=== PATIENT | female | born 1950 | race Caucasian/White ===

== ENCOUNTER → 2016-09-08 | Outpatient (CLI) | payer MEDICARE, OTHER ==
--- NOTE | 2016-09-08 11:07 | FL ---
EXAMINATION TYPE: FL UGI DATE OF EXAM: 09/08/2016 10:56 AM COMPARISON: NONE HISTORY: Epigastric pain with blood in stool and negative colonoscopy 1 year ago TECHNIQUE: A double contrast UGI study is performed. A total of 48 seconds of fluoroscopic time was utilized during procedure. 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 Scattered pelvic phleboliths are pr esent. There is disc space narrowing with spurring and sclerosis right L4-L5 level. Patient has poor tolerance of air crystals initiating cough making evaluation slightly suboptimal The esophagus shows normal motility and emptying into the stomach. No evidence of hiatal hernia or stri cture noted. The stomach shows suboptimal distention with mild to moderate gastric wall or fold prominence. No ev idence of any mass or ulcer disease. One to 2 episodes of gastroesophageal reflux were seen during re al-time performance of study. The duodenal bulb, sweep, and proximal small bowel loops are unremarka ble. IMPRESSION: Fairly moderate diffuse gastritis suspected with mild gastroesophageal reflux noted.
== END | disposition home or self-care (01) ==
LOC: RADFLWHC 09:58
PROVIDERS: ATTEND Internal Medicine
DX: K21.9 Gastro-esophageal reflux disease without esophagitis (principal)
CPT/HCPCS: 74240

== ENCOUNTER 2017-01-05 10:02 | Emergency (ER) | payer MEDICARE, OTHER ==
[2017-01-05 10:19] VITALS: BP 159/104; PULSE 85; RESP 17; TEMP 98.6
--- NOTE | 2017-01-05 11:14 | XR ---
EXAMINATION TYPE: XR Hip Complete RT , 2 VIEWS DATE OF EXAM ORDERED: 01/05/2017 HISTORY: Pain, bruising. COMPARISON: None. FINDINGS: Right femoral head is nonspherical. There is a small "bump" on the femoral neck. There is mild overgrowth of the acetabulum on the right. Note is made of injection granuloma in the right buttock. IMPRESSION: PLEASE CORRELATE CLINICALLY FOR FEMOROACETABULAR IMPINGEMENT.
--- NOTE | 2017-01-05 11:22 | ED ---
Lower Extremity Injury HPI - General Chief Complaint: Extremity Injury, Lower Stated Complaint: Right Hip pain Time Seen by Provider: 01/05/17 10:56 Source: patient, RN notes reviewed, old records reviewed Mode of arrival: ambulatory Limitations: no limitations - History of Present Illness Initial Comments: This is a 66-year-old female presenting to the emergency Department chief complaint of right hip pain for the past week. Patient reports that she feels as if she strained a muscle. Patient reports that over the past day and half she's noticed a bruise over the right hip. Patient reports that she did not fall or have any concern for injury. Patient is concerned why she has a bruise this time. Patient denies any difficulty walking. She reports the pain is mainly when she internally rotates her head. She does see an orthopedic physician for chronic arthritis and hip pain. - Related Data Home Medications Medication Instructions Recorded Confirmed Atenolol [Atenolol] 25 mg PO DAILY 12/25/15 01/05/17 traMADol HCL [Ultram] 50 mg PO TID 12/25/15 01/05/17 Citalopram Hydrobromide [CeleXA] 20 mg PO DAILY 03/31/16 01/05/17 Omeprazole [PriLOSEC] 20 mg PO DAILY 01/05/17 01/05/17 Previous Rx's Medication Instructions Recorded Acetaminophen-Codeine 300-30mg 1 tab PO Q4H PRN #12 tablet 01/05/17 [Tylenol #3] Allergies Allergy/AdvReac Type Severity Reaction Status Date / Time bacitracin AdvReac Rash/Hives Verified 01/05/17 10:29 [From Neosporin ([id number])] bacitracin zinc AdvReac Rash/Hives Verified 01/05/17 10:29 [From Neosporin ([id number])] neomycin sulfate AdvReac Rash/Hives Verified 01/05/17 10:29 [From Neosporin ([id number])] polymyxin B AdvReac Rash/Hives Verified 01/05/17 10:29 [From Neosporin ([id number])] Review of Systems ROS Statement: Those systems with pertinent positive or pertinent negative responses have been documented in the HPI. ROS Other: All systems not noted in ROS Statement are negative. Past Medical History Past Medical History: Hypertension History of Any Multi-Drug Resistant Organisms: None Reported Past Surgical History: Hysterectomy, Orthopedic Surgery Additional Past Surgical History / Comment(s): knee, shoulder Past Psychological History: Bipolar Smoking Status: Current every day smoker Past Alcohol Use History: Rare Past Drug Use History: None Reported General Exam - General Exam Comments Initial Comments: 66-year-old female. No distress. Limitations: no limitations General appearance: alert, in no apparent distress Head exam: Present: atraumatic, normocephalic, normal inspection Eye exam: Present: normal appearance, PERRL, EOMI. Absent: scleral icterus, conjunctival injection, periorbital swelling ENT exam: Present: normal exam, mucous membranes moist Neck exam: Present: normal inspection. Absent: tenderness, meningismus, lymphadenopathy Respiratory exam: Present: normal lung sounds bilaterally. Absent: respiratory distress, wheezes, rales, rhonchi, stridor Cardiovascular Exam: Present: regular rate, normal rhythm, normal heart sounds. Absent: systolic murmur, diastolic murmur, rubs, gallop, clicks GI/Abdominal exam: Present: soft, normal bowel sounds. Absent: distended, tenderness, guarding, rebound, rigid Extremities exam: Present: normal inspection, full ROM, normal capillary refill , other (Contusion over lateral right hip. No evidence of decreased range of motion or knee pain or distant neurological or vascular deficits.). Absent: tenderness, pedal edema, joint swelling, calf tenderness Back exam: Present: normal inspection Neurological exam: Present: alert, oriented X3, CN II-XII intact Psychiatric exam: Present: normal affect, normal mood Course Vital Signs 01/05/17 10:15 Temperature 98.6 F Pulse Rate 85 Respiratory 17 Rate Blood Pressure 159/104 O2 Sat by Pulse 95 Oximetry Medical Decision Making - Medical Decision Making This is a 66-year-old female presenting to the emergency Department chief complaint of right hip pain for the past week. Patient reports that she feels as if she strained a muscle. Patient reports that over the past day and half she's noticed a bruise over the right hip. Patient reports that she did not fall or have any concern for injury. Patient is concerned why she has a bruise this time. Patient denies any difficulty walking. Patient does have a significant bruise over the lateral aspect of the hip. Discussed that this could be related to the muscle strain tearing a blood vessel. Patient has good distal pulses and is neurovascularly intact. X-ray of the hip was reviewed and indicated to correlate for femoral acetabular syndrome. He does have some mild pain with internal rotation. Discussed that she is apply ice over the hip and take anti-inflammatory medication. Discussed following up with orthopedic physician. Patient agrees to treatment plan will comply. Return parameters were discussed. - Radiology Data Radiology results: report reviewed Hip x-rays reviewed and negative for any acute process. Indicated to correlate for femoral acetabular syndrome. Disposition Clinical Impression: Contusion, hip, Hip strain Disposition: HOME SELF-CARE Condition: Good Instructions: Hip Sprain (ED), Hip Contusion (ED) Additional Instructions: Patient denies a take Motrin or Tylenol for pain. Apply ice over the area. Also recommend following up with orthopedic physician. Return to the emergency department if any alarming signs or symptoms occur. Prescriptions: Acetaminophen-Codeine 300-30mg [Tylenol #3] 1 tab PO Q4H PRN #12 tablet PRN Reason: Pain Referrals: Angel Stahl MD [Primary Care Provider] - 1-2 days Jose Ugalde DO [Doctor of Osteopathic Medicine] - 1-2 days Time of Disposition: 11:22
== END 2017-01-05 11:40 | disposition home or self-care (01) ==
LOC: EC 10:02
DX: S76.011A Strain of muscle, fascia and tendon of right hip, initial encounter (principal); I10 Essential (primary) hypertension; F31.9 Bipolar disorder, unspecified; F17.200 Nicotine dependence, unspecified, uncomplicated; Z88.2 Allergy status to sulfonamides; Z88.1 Allergy status to other antibiotic agents; Z79.891 Long term (current) use of opiate analgesic; Z79.899 Other long term (current) drug therapy; W18.49XA Other slipping, tripping and stumbling without falling, initial encounter
CPT/HCPCS: 73502; 99283

== ENCOUNTER → 2017-09-19 | Outpatient (CLI) | payer MEDICARE, OTHER ==
[2017-09-19 09:39] LABS: HCT 46.3 % (34.0-46.0); HGB 14.9 gm/dL (11.4-16.0); MCH 31.3 pg (25.0-35.0); MCHC 32.3 g/dL (31.0-37.0); MCV 96.9 fL (80.0-100.0); Mean Platelet Volume 7.4; Platelet Count 245 k/uL (150-450); RBC 4.78 m/uL (3.80-5.40); RDW 13.4 % (11.5-15.5); WBC 6.9 k/uL (3.8-10.6)
[2017-09-19 09:52] LABS: ALT 21 U/L (9-52); AST 18 U/L (14-36); Albumin 4.2 g/dL (3.5-5.0); Alkaline Phosphatase 75 U/L (38-126); Anion Gap 11 mmol/L; Blood Urea Nitrogen 12 mg/dL (7-17); Carbon Dioxide 27 mmol/L (22-30); Chloride 101 mmol/L (98-107); Cholesterol 163 mg/dL (<200); Glucose 100 mg/dL (74-99); HDL Cholesterol 60 mg/dL (40-60); LDL Cholesterol,Calculated 80 mg/dL (0-99); Sodium 139 mmol/L (137-145); Total Bilirubin 0.7 mg/dL (0.2-1.3); Total Protein 6.5 g/dL (6.3-8.2); Triglycerides 117 mg/dL (<150)
[2017-09-19 10:08] LABS: T4, Free (Free Thyroxine) 1.16 ng/dL (0.78-2.19)
--- NOTE | 2017-09-19 10:18 | XR ---
EXAMINATION TYPE: XR chest 2V DATE OF EXAM: 09/19/2017 COMPARISON: 06/08/2012 HISTORY: Physical examination TECHNIQUE: Frontal and lateral views of the chest are obtained. FINDINGS: There is no focal air space opacity, pleural effusion, or pneumothorax seen. The cardiac silhouette size is within normal limits. The osseous structures are intact. Surgical anchors seen w ithin the left humeral head from prior rotator cuff repair. Minimal multilevel degenerative changes o f the thoracic spine are noted. IMPRESSION: No acute cardiopulmonary process.
== END | disposition home or self-care (01) ==
LOC: LABWHC1 08:56
PROVIDERS: ATTEND Internal Medicine
DX: Z00.00 Encounter for general adult medical examination without abnormal findings (principal); J44.9 Chronic obstructive pulmonary disease, unspecified; I10 Essential (primary) hypertension; K21.9 Gastro-esophageal reflux disease without esophagitis
CPT/HCPCS: 36415; 71046; 80053; 80061; 82272; 84439; 84443; 85027

== ENCOUNTER → 2018-10-24 | Outpatient (CLI) | payer MEDICARE, OTHER ==
[2018-10-24 11:42] LABS: HCT 39.5 % (34.0-46.0); HGB 13.3 gm/dL (11.4-16.0); MCH 31.2 pg (25.0-35.0); MCHC 33.6 g/dL (31.0-37.0); Mean Platelet Volume 6.8; Platelet Count 295 k/uL (150-450); RBC 4.25 m/uL (3.80-5.40); RDW 12.7 % (11.5-15.5); WBC 4.1 k/uL (3.8-10.6)
--- NOTE | 2018-10-24 13:31 | XR ---
EXAMINATION TYPE: XR chest 2V DATE OF EXAM: 10/24/2018 COMPARISON: NONE HISTORY: Annual physical. Wellness check. TECHNIQUE: Frontal and lateral views of the chest are obtained. FINDINGS: There is no focal air space opacity, pleural effusion, or pneumothorax seen. The cardiac silhouette size is within normal limits. The osseous structures are intact. Surgical anchor is seen within the left humeral head. Mild multilevel degenerative changes of the thoracic spine are noted. IMPRESSION: No acute cardiopulmonary process.
[2018-10-24 17:01] LABS: LDL Cholesterol,Calculated 119.8 mg/dL (0.0-131.0); VLDL Calculation 10.2 mg/dL (5.00-40.00)
[2018-10-24 17:02] LABS: Albumin 4.3 g/dL (3.80-4.90); Albumin/Globulin Ratio 2.87 (1.60-3.17); Anion Gap 7.2 mmol/L (4.00-12.00); Calcium 9.5 mg/dL (8.7-10.3); Carbon Dioxide 23.8 mmol/L (21.6-31.8); Globulin 1.5 g/dL (1.6-3.3); Potassium 4.3 mmol/L (3.5-5.5); Total Bilirubin 0.4 mg/dL (0.3-1.2); Total Protein 5.8 g/dL (6.2-8.2)
== END | disposition home or self-care (01) ==
LOC: LABWHC1 10:28
PROVIDERS: ATTEND Internal Medicine
DX: Z00.00 Encounter for general adult medical examination without abnormal findings (principal); I11.9 Hypertensive heart disease without heart failure; J44.9 Chronic obstructive pulmonary disease, unspecified; K21.0 Gastro-esophageal reflux disease with esophagitis; E78.2 Mixed hyperlipidemia
CPT/HCPCS: 36415; 71046; 80053; 80061; 84439; 84443; 85027

== ENCOUNTER → 2018-10-30 | Outpatient (CLI) | payer MEDICARE ==
[2018-10-30 13:37] VITALS: BP 138/91; PULSE 69; RESP 18; TEMP 96.2; BMI 23.9
--- NOTE | 2018-10-30 14:22 | P.HPOB ---
History of Present Illness H&P Date: 10/30/18 Chief Complaint: The patient is here for her routine gynecologic exam. This is a 68-year-old with an LMP of 1976. The patient is status post [facility] for carcinoma in situ of the cervix in 1976. She is without gynecologic complaints. She denies any vaginal bleeding. Review of Systems She is getting about 13 pounds over the last 4 years. Respiratory: occasional allergy symptoms. G.I.: occasional constipation and occasional loose stools. She denies any cardiac problems. Past Medical History Past Medical History: CVA/TIA, Hypertension Additional Past Medical History / Comment(s): TIA in 2012. Chronic back problems with herniated disk. History of osteopenia. 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 History of hysterectomy for CIS of the cervix in 1976. History of Any Multi-Drug Resistant Organisms: None Reported Past Surgical History: Hysterectomy, Orthopedic Surgery Additional Past Surgical History / Comment(s): knee, rotator cuff surgery/shoulder. JOIE 1976. Colonoscopy 2001 and 2014. Past Psychological History: Bipolar Smoking Status: Current every day smoker (12-18 cigarettes per day) Past Alcohol Use History: Rare Additional Past Alcohol Use History / Comment(s): History of alcohol abuse. She states she went through rehab in 2018 and states she quit after that. Past Drug Use History: Cocaine, Marijuana Additional Drug Use History / Comment(s): Quit using cocaine years ago. She admits to using marijuana. History of opioid abuse but quit after rehab in 2018. Additional History: She is and is not seen anybody at this time. She is retired. - Past Family History Mother Family Medical History: Unable to Obtain Additional Family Medical History / Comment(s): She is adopted and does not know her family history. Medications and Allergies Home Medications Medication Instructions Recorded Confirmed Type Atenolol 25 mg PO DAILY 12/25/15 10/30/18 History Gabapentin [Neurontin] 300 mg PO BID 10/30/18 10/30/18 History Vortioxetine Hydrobromide 5 mg PO DAILY 10/30/18 10/30/18 History [Trintellix] hydrOXYzine PAMOATE [Vistaril] 25 mg PO BID 10/30/18 10/30/18 History Allergies Allergy/AdvReac Type Severity Reaction Status Date / Time bacitracin AdvReac Rash/Hives Verified 10/30/18 13:29 [From Neosporin ([id number])] bacitracin zinc AdvReac Rash/Hives Verified 10/30/18 13:29 [From Neosporin ([id number])] neomycin sulfate AdvReac Rash/Hives Verified 10/30/18 13:29 [From Neosporin ([id number])] polymyxin B AdvReac Rash/Hives Verified 10/30/18 13:29 [From Neosporin ([id number])] Exam Vital Signs Temp Pulse Resp BP Pulse Ox 10/30/18 13:32 96.2 F L 69 18 138/91 97 Intake and Output 10/29/18 10/30/18 10/30/18 22:59 06:59 14:59 Other: Weight 61.235 kg Height 5'3", weight 135 pounds, BMI 23.9. This is a well-developed well-nourished white female who is alert and oriented times 3 in no acute distress. HEENT: Within normal limits. NECK: Supple without mass or thyromegaly. CHEST AND LUNGS: Clear to auscultation. HEART: Regular rate and rhythm. BREASTS: Are without mass or discharge. AXILLARY EXAM: Negative for adenopathy. BACK: Negative for CVA tenderness. ABDOMEN: Soft, nontender, without palpable masses. PELVIC EXAM: External genitalia appears normal with mild to moderate atrophy. Vagina appears normal with mild to moderate atrophy. There is no evidence of prolapse. Bimanual examination is negative for mass or tenderness. RECTAL EXAM: Rectovaginal exam is negative for mass or tenderness and is negative for occult blood. EXTREMITIES: Nontender. IMPRESSION: 1. 68-year-old menopausal female status post JOIE for CIS of the cervix. Normal gynecologic exam. 2. History of osteopenia. PLAN: 1. Pap smear of the vaginal cuff was obtained because of her history of CIS of the cervix. If this is negative, we will plan on discontinuing Pap smear testing. 2. Self breast awareness was discussed with the patient. 3. Screening mammogram was done last month at [facility] and was benign per the patient. She will repeat this in one year. 4. Osteoporosis prevention was discussed. I have stressed the importance of adequate calcium, vitamin D and regular exercise. Recommended amounts of calcium and vitamin D were also discussed. I have recommended bone density testing. The order slip will be sent to the patient. 5. She was advised to return in one year for her annual well woman exam.
--- NOTE | 2018-11-09 15:22 | P.PN ---
Progress Note - Text Progress Note Date: 11/09/18 OUTPATIENT FOLLOW-UP NOTE TEST(S)/RESULTS: Pap smear from 10/30/2018 was negative. There was a shift in the bacteria jaime suggestive of bacterial vaginosis. METHOD OF NOTIFICATION: the patient was notified by phone. PATIENT COMMENTS: the patient denies any symptoms of vaginal odor or discharge. She had recently been on antibiotics. DIAGNOSIS: negative Pap smear. No symptoms of BV. DISCUSSION: the patient was instructed to call she develops any symptoms such as vaginal odor or discharge. We discussed how her treatment for CIS of the cervix was greater than 20 years ago. With this negative Pap smear, we will plan and discontinuing Pap smears and she was notified of this. PLAN: She was advised to return in one year for her annual well woman exam. Discontinue Pap smear testing.
== END | disposition home or self-care (01) ==
LOC: WWCWWP 13:10
PROVIDERS: ATTEND Obstetrics & Gynecology
DX: Z53.9 Procedure and treatment not carried out, unspecified reason (principal)

== ENCOUNTER 2019-04-28 20:57 | Emergency (ER) | payer MEDICARE, OTHER ==
[2019-04-28] MEDS ORDERED: SODIUM CHLORIDE 0.9% 1,000 ML IV STA (21:01)
[2019-04-28] MEDS ORDERED: Alteplase PER PHARMACY Stroke 1 EACH MISC MISCELLANE PRN (21:01)
[2019-04-28 21:02] LABS: Glucose,Whole Blood 117 mg/dL (75-99)
--- NOTE | 2019-04-28 21:04 | ED ---
Neuro HPI - General Stated Complaint: Neuro Deficits Time Seen by Provider: 04/28/19 21:01 - History of Present Illness Is the patient presenting with stroke symptoms?: Yes -: hour(s) (0.5) Initial Comments: This is a 61-year-old female history of TIA high blood pressure high cholesterol coming in with stroke like symptoms. EMS. No blood thinners symptoms have 4 prior to arrival. Patient unable to move right arm unable to move right leg with right-sided slurred speech. Patient does state that the called EMS is that she is having a stroke. EMS noted mildly elevated blood pressure, patient denyi ng headache. Location: speech, right face, right arm, right leg History of same: No Place: home Severity: severe Quality: weak Improves With: none Worsens With: time On Anticoagulants: No Context: sudden onset Associated Symptoms: denies other symptoms Treatments Prior to Arrival: none - Related Data Home Medications: Home Medications Medication Instructions Recorded Confirmed Atenolol 25 mg PO DAILY 12/25/15 04/28/19 Gabapentin [Neurontin] 300 mg PO BID 10/30/18 04/28/19 hydrOXYzine PAMOATE [Vistaril] 25 mg PO BID 10/30/18 04/28/19 Cyanocobalamin (Vitamin B-12) 1,000 mcg PO DAILY 04/28/19 04/28/19 [Vitamin B-12] Losartan Potassium [Cozaar] 100 mg PO DAILY 04/28/19 04/28/19 OXcarbazepine [Trileptal] 300 mg PO BID 04/28/19 04/28/19 Turmeric Root Extract [Turmeric] 500 mg PO DAILY 04/28/19 04/28/19 Vortioxetine Hydrobromide 10 mg PO DAILY 04/28/19 04/28/19 [Trintellix] Allergies/Adverse Reactions: Allergies Allergy/AdvReac Type Severity Reaction Status Date / Time bacitracin AdvReac Rash/Hives Verified 04/28/19 21:19 [From Neosporin ([id number])] bacitracin zinc AdvReac Rash/Hives Verified 04/28/19 21:19 [From Neosporin ([id number])] neomycin sulfate AdvReac Rash/Hives Verified 04/28/19 21:19 [From Neosporin ([id number])] polymyxin B AdvReac Rash/Hives Verified 04/28/19 21:19 [From Neosporin ([id number])] Review of Systems ROS Statement: Those systems with pertinent positive or pertinent negative responses have been documented in the HPI. ROS Other: All systems not noted in ROS Statement are negative. Stroke MDM - Lab Data Result diagrams: 04/28/19 21:00 04/28/19 21:00 Lab Results 04/28/19 04/28/19 04/28/19 Range/Units 21:00 21:00 21:00 WBC 7.7 (3.8-10.6) k/uL RBC 4.04 (3.80-5.40) m/uL Hgb 12.8 (11.4-16.0) gm/dL Hct 37.4 (34.0-46.0) % MCV 92.5 (80.0-100.0) fL MCH 31.7 (25.0-35.0) pg MCHC 34.2 (31.0-37.0) g/dL RDW 12.4 (11.5-15.5) % Plt Count 349 (150-450) k/uL Neutrophils % 49 % Lymphocytes % 38 % Monocytes % 7 % Eosinophils % 2 % Basophils % 1 % Neutrophils # 3.8 (1.3-7.7) k/uL Lymphocytes # 2.9 (1.0-4.8) k/uL Monocytes # 0.5 (0-1.0) k/uL Eosinophils # 0.2 (0-0.7) k/uL Basophils # 0.1 (0-0.2) k/uL PT (9.0-12.0) sec INR (<1.2) APTT (22.0-30.0) sec Sodium (137-145) mmol/L Potassium (3.5-5.1) mmol/L Chloride (98-107) mmol/L Carbon Dioxide (22-30) mmol/L Anion Gap mmol/L BUN (7-17) mg/dL Creatinine (0.52-1.04) mg/dL Est GFR (CKD-EPI)AfAm (>60 ml/min/1.73 sqM) Est GFR (CKD-EPI)NonAf (>60 ml/min/1.73 sqM) Glucose (74-99) mg/dL POC Glucose (mg/dL) 117 H (75-99) mg/dL POC Glu Super[employer] ID Norma Villavicencio Calcium (8.4-10.2) mg/dL Total Bilirubin (0.2-1.3) mg/dL AST (14-36) U/L ALT (9-52) U/L Alkaline Phosphatase (38-126) U/L Total Creatine Kinase 56 (30-135) U/L CK-MB (CK-2) 0.9 (0.0-2.4) ng/mL CK-MB (CK-2) Rel Index 1.6 Troponin I <0.012 (0.000-0.034) ng/mL Total Protein (6.3-8.2) g/dL Albumin (3.5-5.0) g/dL 04/28/19 04/28/19 04/28/19 Range/Units 21:00 21:00 21:11 WBC (3.8-10.6) k/uL RBC (3.80-5.40) m/uL Hgb (11.4-16.0) gm/dL Hct (34.0-46.0) % MCV (80.0-100.0) fL MCH (25.0-35.0) pg MCHC (31.0-37.0) g/dL RDW (11.5-15.5) % Plt Count (150-450) k/uL Neutrophils % % Lymphocytes % % Monocytes % % Eosinophils % % Basophils % % Neutrophils # (1.3-7.7) k/uL Lymphocytes # (1.0-4.8) k/uL Monocytes # (0-1.0) k/uL Eosinophils # (0-0.7) k/uL Basophils # (0-0.2) k/uL PT 9.4 (9.0-12.0) sec INR 0.9 (<1.2) APTT 28.7 (22.0-30.0) sec Sodium 128 L (137-145) mmol/L Potassium 3.5 (3.5-5.1) mmol/L Chloride 95 L (98-107) mmol/L Carbon Dioxide 25 (22-30) mmol/L Anion Gap 8 mmol/L BUN 11 (7-17) mg/dL Creatinine 0.62 (0.52-1.04) mg/dL Est GFR (CKD-EPI)AfAm >90 (>60 ml/min/1.73 sqM) Est GFR (CKD-EPI)NonAf >90 (>60 ml/min/1.73 sqM) Glucose 112 H (74-99) mg/dL POC Glucose (mg/dL) 134 H (75-99) mg/dL POC Glu [employer] [facility] ID Renato Ramon Calcium 9.4 (8.4-10.2) mg/dL Total Bilirubin 0.2 (0.2-1.3) mg/dL AST 15 (14-36) U/L ALT 17 (9-52) U/L Alkaline Phosphatase 144 H (38-126) U/L Total Creatine Kinase (30-135) U/L CK-MB (CK-2) (0.0-2.4) ng/mL CK-MB (CK-2) Rel Index Troponin I (0.000-0.034) ng/mL Total Protein 6.6 (6.3-8.2) g/dL Albumin 4.2 (3.5-5.0) g/dL - NIH Stroke Scale 1a. Level of Consciousness: (0) alert 1b. LOC Questions: (0) answers correctly 1c. LOC Commands: (0) performs tasks correctly 3. Visual: (0) no visual loss 4. Facial Palsy: (2) partial paralysis 5a. Motor Arm Left: (0) no drift 5b. Motor Arm Right: (3) no gravity effort 6a. Motor Leg Left: (0) no drift 6b. Motor Leg Right: (3) no gravity effort 7. Limb Ataxia: (1) present 1 limb 8. Sensory: (0) normal 9. Best Language: (1) mild/moderate aphasia - Thrombolytic Inclusion/Exclusion Thrombolytic Inclusion Criteria: Symptom Onset < 4.5 h - Core Measures Door to Thrombolytics, if given: [address] Read: 20 Door to Neurologist Consult: 10 AMI Core Measures Followed: Yes Measure Exclusions: not indicated - Medical Decision Making 61 female the ER coming in with stroke, acute stroke. CT was negative patient given TPA, does feel neuro intervention will except transfer patient. - Radiology Data Radiology results: report reviewed (CT Brain CTA had not negative for acute d isease), image reviewed Past Medical History Past Medical History: CVA/TIA, Hypertension Additional Past Medical History / Comment(s): TIA in 2012. Chronic back problems with herniated disk. History of osteopenia. 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 History of hysterectomy for CIS of the cervix in 1976. History of Any Multi-Drug Resistant Organisms: None Reported Past Surgical History: Hysterectomy, Orthopedic Surgery Additional Past Surgical History / Comment(s): knee, rotator cuff surgery/shoulder. JOIE 1976. Colonoscopy 2001 and 2014. Past Psychological History: Bipolar Smoking Status: Current every day smoker (12-18 cigarettes per day) Past Alcohol Use History: Rare Additional Past Alcohol Use History / Comment(s): History of alcohol abuse. She states she went through rehab in 2018 and states she quit after that. Past Drug Use History: Cocaine, Marijuana Additional Drug Use History / Comment(s): Quit using cocaine years ago. She admits to using marijuana. History of opioid abuse but quit after rehab in 2018. - Past Family History Mother Family Medical History: Unable to Obtain Additional Family Medical History / Comment(s): She is adopted and does not know her family history. Course Vital Signs 04/28/19 04/28/19 04/28/19 21:00 21:06 21:15 Temperature 97.6 F Pulse Rate 65 68 62 Respiratory 18 18 18 Rate Blood Pressure 201/108 180/107 165/96 O2 Sat by Pulse 96 Oximetry 04/28/19 04/28/19 04/28/19 21:30 21:45 22:00 Temperature 97.8 F Pulse Rate 66 71 76 Respiratory 18 18 18 Rate Blood Pressure 179/108 181/106 158/92 O2 Sat by Pulse 96 96 96 Oximetry 04/28/19 22:15 Temperature Pulse Rate 75 Respiratory 18 Rate Blood Pressure 137/82 O2 Sat by Pulse 97 Oximetry - Reevaluation(s) Reevaluation #1: 04/28/19 22:27 Medical records reviewed 04/28/19 22:28 Social patient upon of patient's emergency arrival, spoke with Dr. Solo who recommends TPA administration. Then spoke with patient regarding pros and cons of TPA administration she agrees and consents receiving TPA Reevaluation #2: 04/28/19 22:27 Patient was given TPA and blood pressure control as well as IV hydration. Patient did have significant improvement right-sided deficits able to move right arm 04/28/19 22:28 Patient continues to show improvement - Consultations Consultation #1: spoke w [facility] who is agreeable for transfer Critical Care Time Critical Care Time: Yes Total Critical Care Time: 31 Disposition Clinical Impression: Cerebrovascular accident (CVA) Disposition: OTHER INSTITUTION NOT DEFINED Condition: Fair Is patient prescribed a controlled substance at d/c from ED?: No Referrals: Mahin Gonzalez MD [Primary Care Provider] - 1-2 days - Out of Hospital Transfer - Req. Specs Out of Hospital Transfer - Requested Specifics: Other Emergency Center ([facility])
[2019-04-28 21:10] LABS: Basophils # (A) 0.1 k/uL (0-0.2); Basophils % (A) 1 %; Eosinophils # (A) 0.2 k/uL (0-0.7); Eosinophils % (A) 2 %; HCT 37.4 % (34.0-46.0); HGB 12.8 gm/dL (11.4-16.0); Lymphocytes # (A) 2.9 k/uL (1.0-4.8); Lymphocytes % (A) 38 %; MCH 31.7 pg (25.0-35.0); MCHC 34.2 g/dL (31.0-37.0); MCV 92.5 fL (80.0-100.0); Mean Platelet Volume 5.6; Monocytes # (A) 0.5 k/uL (0-1.0); Monocytes % (A) 7 %; Neutrophils # (A) 3.8 k/uL (1.3-7.7); Neutrophils % (A) 49 %; Platelet Count 349 k/uL (150-450); RBC 4.04 m/uL (3.80-5.40); RDW 12.4 % (11.5-15.5); WBC 7.7 k/uL (3.8-10.6)
[2019-04-28] MEDS ORDERED: ALTEPLASE BOLUS 6 MG in EMPTY SYRINGE 1 SYR IV STA (21:10)
[2019-04-28] MEDS ORDERED: ALTEPLASE 53 MG in EMPTY BAG 1 BAG IV STA (21:10)
[2019-04-28 21:15] LABS: INR 0.9 (<1.2); Partial Thromboplastin Time 28.7 sec (22.0-30.0); Prothrombin Time 9.4 sec (9.0-12.0)
[2019-04-28 21:16] LABS: ALT 17 U/L (9-52); AST 15 U/L (14-36); African American GFR (CKD) >90 (>60 ml/min/1.73 sqM); Albumin 4.2 g/dL (3.5-5.0); Alkaline Phosphatase 144 U/L (38-126); Anion Gap 8 mmol/L; Blood Urea Nitrogen 11 mg/dL (7-17); Calcium 9.4 mg/dL (8.4-10.2); Carbon Dioxide 25 mmol/L (22-30); Chloride 95 mmol/L (98-107); Glucose 112 mg/dL (74-99); Potassium 3.5 mmol/L (3.5-5.1); Sodium 128 mmol/L (137-145); Total Bilirubin 0.2 mg/dL (0.2-1.3); Total Protein 6.6 g/dL (6.3-8.2)
[2019-04-28 21:19] LABS: Glucose,Whole Blood 134 mg/dL (75-99)
--- NOTE | 2019-04-28 21:19 | CT ---
EXAMINATION TYPE: CT brain wo con for TPA DATE OF EXAM: 04/28/2019 COMPARISON: None HISTORY: cva, right sided numbness CT DLP: 1056.9 mGycm Automated exposure control for dose reduction was used. FINDINGS: There is some patchy hypodensity in the periventricular white matter. There is no mass effect nor mid line shift. There is no sign of intracranial hemorrhage. There is some enlargement of the ventricles. Calvarium is intact. IMPRESSION: CHRONIC SMALL VESSEL ISCHEMIA. NO ACUTE INTRACRANIAL ABNORMALITY. NO HEMORRHAGE.
[2019-04-28 21:21] LABS: Creatine Kinase 56 U/L (30-135)
--- NOTE | 2019-04-28 21:34 | CT ---
EXAMINATION TYPE: CT angio head neck DATE OF EXAM: 04/28/2019 HISTORY: cva. right sided numbness. COMPARISON: CT DLP: 383.6 mGycm. Automated Exposure Control for Dose Reduction was Utilized. TECHNIQUE: CTA scan of the brain and neck is performed with IV Contrast, patient injected with 65cc mL of Isovue 370, axial images are obtained, coronal and sagittal reformatted images are reviewed. Th ree-D reconstructed images are created on an independent workstation and reviewed. FINDINGS: There is normal 19 pattern of the great vessels on the aortic arch. 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 There is no dissection. There is bilateral arterial flow in the subclavian arteries. There is arterial flow in the common int ernal and external carotid arteries bilaterally. There is arterial flow in the vertebrobasilar artery system. There is bilateral arterial flow in the vertebral arteries. There is no evidence of carotid or vertebral artery aneurysm or dissection. There is wide patency of the carotid artery bifurcations. There is arterial flow in the anterior middle and posterior cerebral arteries. There is no mass effe ct. There is no evidence of intracranial aneurysm or neovascularity. There is no evidence of intracra nial arterial stenosis. There is normal contrast opacification of the venous sinuses. IMPRESSION: Negative CT angiogram of the brain. Negative CT angiogram of the neck.
[2019-04-28 21:35] LABS: Troponin I <0.012 ng/mL (0.000-0.034)
[2019-04-28] MEDS ORDERED: LABETALOL 5 MG/ML VIAL MDV IVP STA (21:36)
[2019-04-28 21:40] LABS: Creatine Kinase MB 0.9 ng/mL (0.0-2.4)
--- NOTE | 2019-04-28 21:42 | XR ---
EXAMINATION TYPE: XR chest 1V DATE OF EXAM: 04/28/2019 COMPARISON: 10/24/2018 HISTORY: Altered mental status TECHNIQUE: Single frontal view of the chest is obtained. FINDINGS: Heart and mediastinum are normal. Lungs are clear. Diaphragm is normal. Bony thorax appear s normal. IMPRESSION: Normal chest. No change
[2019-04-28 22:29] LABS: Appearance,Urine Clear (Clear); Bilirubin,Urine Negative (Negative); Blood,Urine Negative (Negative); Color,Urine Colorless; Glucose,Urine (UA) Negative (Negative); Ketones,Urine Negative (Negative); Leukocyte Esterase,Urine Negative (Negative); Nitrite,Urine Negative (Negative); Protein,Urine Negative (Negative); Urobilinogen,Urine <2.0 mg/dL (<2.0)
[2019-04-28] MEDS ORDERED: SODIUM CHLORIDE 0.9% 50 ML IVPB ONE (22:45)
[2019-04-28 23:18] VITALS: BP 166/104; PULSE 64; TEMP 98
[2019-04-28 23:23] VITALS: RESP 18
== END 2019-04-28 23:42 | disposition other institution (70) ==
LOC: EC 20:57
DX: I63.9 Cerebral infarction, unspecified (principal); R29.707 NIHSS score 7; I10 Essential (primary) hypertension; G89.29 Other chronic pain; M54.9 Dorsalgia, unspecified; F31.9 Bipolar disorder, unspecified; F17.210 Nicotine dependence, cigarettes, uncomplicated; Z79.899 Other long term (current) drug therapy; Z88.1 Allergy status to other antibiotic agents; Z88.8 Allergy status to other drugs, medicaments and biological substances
CPT/HCPCS: 99291; 96374; 37195; 96361 ×2; 36415; 93005; 80053; 82550; 82553; 84484; 85025; 85610; 85730; 81003; 71045; 70496; 70450; 70498; J2997; Q9967

== ENCOUNTER → 2019-08-06 | Outpatient (CLI) | payer MEDICARE ==
[2019-08-06 10:33] LABS: HCT 42.4 % (34.0-46.0); HGB 14.2 gm/dL (11.4-16.0); MCH 31.2 pg (25.0-35.0); MCHC 33.6 g/dL (31.0-37.0); Mean Platelet Volume 6.7; Platelet Count 310 k/uL (150-450); RBC 4.56 m/uL (3.80-5.40); RDW 11.9 % (11.5-15.5); WBC 5.4 k/uL (3.8-10.6)
[2019-08-06 10:43] LABS: African American GFR (CKD) >90 (>60 ml/min/1.73 sqM); Anion Gap 8 mmol/L; Blood Urea Nitrogen 11 mg/dL (7-17); Carbon Dioxide 25 mmol/L (22-30); Chloride 100 mmol/L (98-107); Non-African American GFR(CKD) >90 (>60 ml/min/1.73 sqM); Potassium 4.4 mmol/L (3.5-5.1); Sodium 133 mmol/L (137-145)
== END | disposition home or self-care (01) ==
LOC: LABPAT 09:15
PROVIDERS: ATTEND Internal Medicine Interventional Cardiology
DX: Z01.812 Encounter for preprocedural laboratory examination (principal); Q21.1 Atrial septal defect
CPT/HCPCS: 36415; 80051; 82565; 84520; 85027

== ENCOUNTER 2019-08-13 06:09 | Day surgery (SDC) | payer MEDICARE, OTHER ==
[2019-08-12 11:27] VITALS: BMI 25.7
[2019-08-13] MEDS ORDERED: ASPIRIN 81 MG ONE (06:27)
[2019-08-13] MEDS: SODIUM CHLORIDE 0.9% 1,000 ML IV SCH ×2 (06:51→17:16)
[2019-08-13] MEDS ORDERED: MIDAZOLAM 2 MG/2 ML VIAL IV ONE (07:55)
[2019-08-13] MEDS ORDERED: fentaNYL (PF) 50 MCG/ML 2 ML AMP IV ONE (08:00)
[2019-08-13] MEDS ORDERED: LIDOCAINE 1% INJ 10MG/ML (20 ML MDV) SQ ONE (08:01)
[2019-08-13] MEDS ORDERED: CLOPIDOGREL 75 MG TAB PO ONE (08:31)
[2019-08-13] MEDS ORDERED: IOPAMIDOL-370 50ML BTL INJ ONE (08:31)
[2019-08-13] MEDS ORDERED: SODIUM CHLORIDE 0.9% 1,000 ML IV SCH (08:45)
--- NOTE | 2019-08-13 09:52 | LTR ---
August 13, 2019 Re: Adelina Smalls Dear Dr. Gonzalez: Ms. Adelina Smalls underwent today successful percutaneous closure of patent foramen ovale using Amplatzer PFO occluder with an excellent result and without any residual shunt across the septum. Again, thank you for allowing me to participate in her care and please do not hesitate to call if you have any question or concern. Sincerely, Jacky Gregory MD MMKALEL / ROBN: [id number] /
--- NOTE | 2019-08-13 10:13 | PCN ---
PROCEDURE NOTE CARDIAC PROCEDURE: DATE OF SERVICE: August 13, 2019 PERFORMING PHYSICIAN: Jacky Gregory MD. PROCEDURE PERFORMED: 1. Intracardiac echocardiogram imaging. 2. Successful percutaneous closure of patent foramen ovale using 25 mm Amplatzer PFO occluder with an excellent result and without any residual shunt. 3. Right atrial angiogram. INDICATION: This is a very pleasant 69-year-old female patient who sees Dr. Gonzalez who was diagnosed recently with a stroke. She underwent a CASSI and that revealed patent foramen ovale with evidence of [id number] shunt. Because of that, she was brought today to undergo a PFO closure. APPROACH: Right common femoral vein. COMPLICATION: None. LEVEL OF SEDATION: Moderate with sedation length of 30 minutes. PROCEDURE DESCRIPTION: After obtaining an informed consent, the patient was brought to the cardiac freezer laboratory technician. The right common femoral vein was cannulated x2 using micropuncture technique under ultrasound guidance, the micropuncture wire passed easily then I placed two 11 cm 8- [place] Islander sheaths in the right common femoral vein. Subsequently, anticoagulation was initiated using heparin and the patient was given a total of 8000 units of heparin IV. ACT was monitored during the procedure. After that, the intracardiac echocardiogram images catheter was advanced through one of the venous sheath all the way to the right atrium under fluoroscopy guidance. I did intra-cardiogram imaging where the interatrial septum was interrogated and the PFO was detected. We did that using 2D echocardiogram, color Doppler, as well as pulse Doppler. Subsequently, I was able to cross the patent foramen ovale using 0.035 J-wire with the backup support of 5-Sol[place] Islander multipurpose catheter. Subsequently the wire was advanced to the left upper pulmonary vein. After that, I did exchange my 0.035 J-wire into wire using the multipurpose catheter. We decided to pursue with a 25 mm Amplatzer PFO occluder of the PFO, which was measured with ICE and color-flow Doppler. At that point, the delivery sheath was prepped using saline. Subsequently the cable was advanced through the Tuohy then the device was loaded to the cable under continuous saline flush and under saline as well. Subsequently I did exchange my 11 cm 8-Sol[place] Islander sheath into the Shuttle sheath using the 0.035 wire which was wire. The sheath was advanced all the way across the interatrial septum. After that, the device was loaded again under continuous saline flush through the sheath. The left atrial occluder was initially deployed. Subsequently the cable and the sheath were pulled out to touch the interatrial septum on the left atrial side. After that, the right atrial occluder was deployed. We did interrogation again using intracardiac echocardiogram images, which showed no residual shunt with stable position of the device. At that point, we decided to release. After that, we did again interrogation and that showed stable position of the device. Finally I did right atrial angiogram through the Shuttle sheath. The procedure was completed without any complication. After that I did exchange my long sheath into short sheath. The procedure was completed without any complication. POSTPROCEDURE MANAGEMENT: 1. Dual antiplatelet therapy for 1 month. 2. Aspirin for 6 months. 3. Follow up with the patient. JAJA / APRIL: [id number] /
[2019-08-13] MEDS ORDERED: amLODIPine 5 MG TAB PO SCH (21:47)
[2019-08-13] MEDS ORDERED: IPRATROPIUM-ALBUTEROL 3 ML NEB INHALATION PRN (21:47)
[2019-08-13] MEDS ORDERED: traZODone HCL 50 MG TAB PO SCH (22:00)
[2019-08-13] MEDS: hydrOXYzine PAMOATE 25 MG CAP PO SCH (22:47)
[2019-08-13] MEDS: GABAPENTIN 300 MG CAP PO SCH (22:48)
[2019-08-13] MEDS: OXcarbazepine 300 MG TAB PO SCH (23:37)
[2019-08-14 05:02] VITALS: RESP 16
[2019-08-14 06:47] LABS: Basophils % (A) 1 %; Eosinophils # (A) 0.2 k/uL (0-0.7); Eosinophils % (A) 3 %; HCT 39.1 % (34.0-46.0); HGB 13.2 gm/dL (11.4-16.0); Lymphocytes # (A) 1.3 k/uL (1.0-4.8); Lymphocytes % (A) 28 %; MCH 31.6 pg (25.0-35.0); MCHC 33.7 g/dL (31.0-37.0); MCV 93.7 fL (80.0-100.0); Mean Platelet Volume 6.8; Monocytes # (A) 0.3 k/uL (0-1.0); Monocytes % (A) 7 %; Neutrophils # (A) 2.6 k/uL (1.3-7.7); Neutrophils % (A) 58 %; Platelet Count 249 k/uL (150-450); RBC 4.18 m/uL (3.80-5.40); RDW 12.2 % (11.5-15.5); WBC 4.5 k/uL (3.8-10.6)
[2019-08-14 07:07] LABS: African American GFR (CKD) >90 (>60 ml/min/1.73 sqM); Anion Gap 5 mmol/L; Blood Urea Nitrogen 8 mg/dL (7-17); Calcium 9.6 mg/dL (8.4-10.2); Carbon Dioxide 26 mmol/L (22-30); Chloride 103 mmol/L (98-107); Glucose 100 mg/dL (74-99); Non-African American GFR(CKD) >90 (>60 ml/min/1.73 sqM); Potassium 4.9 mmol/L (3.5-5.1); Sodium 134 mmol/L (137-145)
--- NOTE | 2019-08-14 07:15 | XR ---
EXAMINATION TYPE: XR chest 2V DATE OF EXAM: 08/14/2019 COMPARISON: 04/28/2019 HISTORY: ASD/PFO closure device placement. TECHNIQUE: Frontal and lateral views of the chest are obtained. FINDINGS: There is no focal air space opacity, pleural effusion, or pneumothorax seen. Cardiac chamb er closure device is seen between the expected location of the atria. The cardiac silhouette size is within normal limits. The osseous structures are intact. IMPRESSION: No acute cardiopulmonary process. No pulmonary vascular congestion.
[2019-08-14] MEDS: GABAPENTIN 300 MG CAP PO SCH (07:59)
[2019-08-14] MEDS: hydrOXYzine PAMOATE 25 MG CAP PO SCH (07:59)
[2019-08-14] MEDS ORDERED: ALBUTEROL NEBULIZED 2.5 MG/3 ML INHALATION SCH (08:00)
[2019-08-14] MEDS: OXcarbazepine 300 MG TAB PO SCH (08:00)
[2019-08-14 08:07] VITALS: BP 155/77; PULSE 91; TEMP 98.2
[2019-08-14] MEDS ORDERED: ATENOLOL 25 MG TAB PO SCH (09:00)
[2019-08-14] MEDS ORDERED: CLOPIDOGREL 75 MG TAB PO SCH (09:00)
[2019-08-14] MEDS ORDERED: ASPIRIN 325 MG TAB PO SCH (09:00)
[2019-08-14] MEDS ORDERED: VORTIOXETINE HYDROBROMIDE 10 MG TABLET PO SCH (09:00)
[2019-08-14] MEDS ORDERED: LOSARTAN 50 MG TAB PO SCH (09:00)
[2019-08-14] MEDS ORDERED: SYMBICORT 160-4.5 MCG INHALER INHALATION SCH (09:00)
--- NOTE | 2019-08-14 11:30 | DS ---
DISCHARGE SUMMARY ADMISSION DATE: August 13, 2019 DISCHARGE DATE: August 14, 2019 BRIEF HISTORY: This is a very pleasant 69-year-old female patient who underwent yesterday successful percutaneous closure of patent foramen ovale with excellent results and without any complication. The procedure was performed from the right groin, which is soft and nontender and without any bruises. The patient is going to be discharged home on dual antiplatelet therapy and I will follow up with her in the office in . MMAMANDA / ROBN: [id number] /
--- NOTE | 2019-08-14 11:37 | ECHOF ---
Referral Reason:Post ASD/PFO Insertion MEASUREMENTS -------- HEIGHT: 160.0 cm WEIGHT: 64.9 kg BP: 137/72 RVIDd: 2.6 cm (< 3.3) IVSd: 1.2 cm (0.6 - 1.1) LVIDd: 3.9 cm (3.9 - 5.3) LVPWd: 1.2 cm (0.6 - 1.1) IVSs: 1.8 cm LVIDs: 2.5 cm LVPWs: 1.5 cm LA Diam: 3.2 cm (2.7 - 3.8) LAESV Index (A-L): 27.35 ml/m Ao Diam: 2.9 cm (2.0 - 3.7) AV Cusp: 1.9 cm (1.5 - 2.6) MV EXCURSION: 11.540 mm (> 18.000) MV EF SLOPE: 35 mm/s (70 - 150) EPSS: 0.6 cm MV E Jake: 0.56 m/s MV DecT: 307 ms MV A Jake: 0.81 m/s MV E/A Ratio: 0.69 RAP: 5.00 mmHg RVSP: 23.73 mmHg FINDINGS -------- Sinus rhythm. This was a technically good study. The left ventricular size is normal. There is borderline concentric left ventricular hypertrophy. Overall left ventricular systolic function is normal with, an EF between 60 - 65 %. The right ventricle is normal in size. Normal LA size by volume 22+/-6 ml/m2. The right atrium is normal in size. Interatrial and interventricular septum intact. There is an interatrial closure device in place wit hout evidence of shunt. The aortic valve is trileaflet and appears structurally normal. There is trace mitral regurgitation. Trace tricuspid regurgitation present. Right ventricular systolic pressure is normal at < 35 mmHg. Trace/mild (physiologic) pulmonic regurgitation. The aortic root size is normal. Normal inferior vena cava with normal inspiratory collapse consistent with estimated right atrial pre ssure of 5 mmHg. There is no pericardial effusion. CONCLUSIONS -------- 1. Sinus rhythm. 2. This was a technically good study. 3. The left ventricular size is normal. 4. There is borderline concentric left ventricular hypertrophy. 5. Overall left ventricular systolic function is normal with, an EF between 60 - 65 %. 6. The right ventricle is normal in size. 7. Normal LA size by volume 22+/-6 ml/m2. 8. The right atrium is normal in size. 9. Interatrial and interventricular septum intact. 10. There is an interatrial closure device in place without evidence of shunt. 11. The aortic valve is trileaflet and appears structurally normal. 12. There is trace mitral regurgitation. 13. Trace tricuspid regurgitation present. 14. Right ventricular systolic pressure is normal at < 35 mmHg. 15. Trace/mild (physiologic) pulmonic regurgitation. 16. The aortic root size is normal. 17. Normal inferior vena cava with normal inspiratory collapse consistent with estimated right atrial pressure of 5 mmHg. 18. There is no pericardial effusion. THEATRE PROFESSOR: Mira Christine RDCS
== END 2019-08-14 10:38 | disposition home or self-care (01) ==
LOC: CATHCVL 06:09 → 3SCARD 08:42 → CATHCVL 08-14 10:38
PROVIDERS: ATTEND Internal Medicine Interventional Cardiology
DX: Q21.1 Atrial septal defect (principal); I10 Essential (primary) hypertension; E78.5 Hyperlipidemia, unspecified; Z86.73 Personal history of transient ischemic attack (TIA), and cerebral infarction without residual deficits; F17.200 Nicotine dependence, unspecified, uncomplicated; Z79.899 Other long term (current) drug therapy
CPT/HCPCS: 93580; 93306; 93662; 94640 ×2; 85347; 86900; 86901; 80048; 85025; 86850; 71046; C1769 ×7; C1894; C1817; C1759; J2250; J0690; J2001; J3010; J1644; Q9967; 93581

== ENCOUNTER → 2019-12-16 | Outpatient (CLI) | payer MEDICARE, OTHER ==
[2019-12-16 10:10] LABS: Basophils # (A) 0.1 k/uL (0-0.2); Basophils % (A) 2 %; Eosinophils # (A) 0.1 k/uL (0-0.7); Eosinophils % (A) 2 %; HGB 14.7 gm/dL (11.4-16.0); Lymphocytes # (A) 1.5 k/uL (1.0-4.8); Lymphocytes % (A) 33 %; MCHC 32.8 g/dL (31.0-37.0); MCV 91.5 fL (80.0-100.0); Mean Platelet Volume 6.9; Monocytes # (A) 0.3 k/uL (0-1.0); Monocytes % (A) 7 %; Neutrophils # (A) 2.4 k/uL (1.3-7.7); Neutrophils % (A) 54 %; Platelet Count 270 k/uL (150-450); RBC 4.92 m/uL (3.80-5.40); RDW 12.4 % (11.5-15.5); WBC 4.5 k/uL (3.8-10.6)
[2019-12-16 11:24] LABS: Erythrocyte Sedimentation Rate 2 mm/hr (0-20)
[2019-12-16 17:54] LABS: African American GFR (CKD) 108.5 (60.0-200.0); Albumin 4.9 g/dL (3.80-4.90); Albumin/Globulin Ratio 2.72 (1.60-3.17); Anion Gap 8.4 mmol/L (4.00-12.00); BUN/Creat Ratio 11.67 Ratio (12.00-20.00); Calcium 10.1 mg/dL (8.7-10.3); Carbon Dioxide 25.6 mmol/L (21.6-31.8); Globulin 1.8 g/dL (1.6-3.3); Non-African American GFR(CKD) 93.7 (60.0-200.0); Potassium 4.5 mmol/L (3.5-5.5); Total Bilirubin 0.6 mg/dL (0.2-1.2); Total Protein 6.7 g/dL (6.2-8.2)
== END | disposition home or self-care (01) ==
LOC: LABWHC1 08:41
PROVIDERS: ATTEND Internal Medicine
DX: D64.9 Anemia, unspecified (principal); J44.9 Chronic obstructive pulmonary disease, unspecified; I10 Essential (primary) hypertension; E78.5 Hyperlipidemia, unspecified; E03.9 Hypothyroidism, unspecified; I63.89 Other cerebral infarction; G81.91 Hemiplegia, unspecified affecting right dominant side
CPT/HCPCS: 36415; 80053; 82550; 84443; 85025; 85652

== ENCOUNTER 2020-08-25 10:31 | Inpatient (IN) | payer MEDICARE, MEDICAID ==
--- NOTE | 2020-08-25 11:07 | ED ---
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 Patient has a pickup order. Patient brought to the ED by the police department. Patient states that she threatened to kill her primary care physician. Patient states she only said that because he would not prescribe her antidepressants. Patient states she is on Trentillex. She denies any homicidal, suicidal thoughts or ideations at this time. Patient states she is very first treated because she cannot be continue his prescription or medications. - Related Data Home Medications Medication Instructions Recorded Confirmed RX: atenoloL [Atenolol] 25 mg PO DAILY 12/25/15 08/25/20 RX: Gabapentin [Neurontin] 300 mg PO BID 10/30/18 08/25/20 RX: hydrOXYzine pamoate [Vistaril] 25 mg PO TID 10/30/18 08/25/20 RX: Losartan Potassium [Cozaar] 100 mg PO DAILY 04/28/19 08/25/20 RX: Vortioxetine Hydrobromide 10 mg PO DAILY 04/28/19 08/25/20 [Trintellix] RX: Budesonide-Formot 160-4.5 Mcg 1 puff INHALATION RT-DAILY 08/12/19 08/25/20 [Symbicort 160-4.5 Mcg Inhaler] RX: amLODIPine [Norvasc] 5 mg PO HS 08/12/19 08/25/20 RX: traZODone HCL 75 mg PO HS 08/12/19 08/25/20 Previous Rx's Medication Instructions Recorded RX: Aspirin 325 mg PO DAILY #90 tab 08/13/19 RX: Clopidogrel [Plavix] 75 mg PO DAILY #30 tab 08/13/19 Allergies Allergy/AdvReac Type Severity Reaction Status Date / Time adhesive tape Allergy Unknown Verified 08/25/20 11:45 bacitracin AdvReac Rash/Hives Verified 08/25/20 11:45 [From Neosporin ([id number])] bacitracin zinc AdvReac Rash/Hives Verified 08/25/20 11:45 [From Neosporin ([id number])] neomycin sulfate AdvReac Rash/Hives Verified 08/25/20 11:45 [From Neosporin ([id number])] polymyxin B AdvReac Rash/Hives Verified 08/25/20 11:45 [From Neosporin ([id number])] Review of Systems ROS Statement: Those systems with pertinent positive or pertinent negative responses have been documented in the HPI. ROS Other: All systems not noted in ROS Statement are negative. Past Medical History Past Medical History: CVA/TIA, Hypertension Additional Past Medical History / Comment(s): TIA in 2012. Chronic back problems with herniated disk. History of osteopenia. 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 History of hysterectomy for CIS of the cervix in 1976. History of Any Multi-Drug Resistant Organisms: None Reported Past Surgical History: Hysterectomy, Orthopedic Surgery Additional Past Surgical History / Comment(s): rt knee surgery, rotator cuff left shoulder, ganglion cyst removed left hand,PFO 08/13/2019 Past Anesthesia/Blood Transfusion Reactions: No Reported Reaction, Unable to Obtain Additional Past Anesthesia/Blood Transfusion Reaction / Comment(s): adopted Past Alcohol Use History: Rare Additional Past Alcohol Use History / Comment(s): History of alcohol abuse. She states she went through rehab in 2018 and states she quit after that. Additional Drug Use History / Comment(s): Quit using cocaine years ago. She admits to using marijuana. History of opioid abuse but quit after rehab in 2018. - Past Family History Mother Family Medical History: Unable to Obtain Additional Family Medical History / Comment(s): She is adopted and does not know her family history. General Exam Limitations: no limitations General appearance: alert, in no apparent distress Head exam: Present: atraumatic, normocephalic, normal inspection Eye exam: Present: normal appearance, PERRL, EOMI Pupils: Present: normal accommodation ENT exam: Present: normal exam, normal oropharynx, mucous membranes moist Neck exam: Present: normal inspection, full ROM. Absent: tenderness Respiratory exam: Present: normal lung sounds bilaterally. Absent: respiratory distress Cardiovascular Exam: Present: regular rate, normal rhythm, normal heart sounds Extremities exam: Present: normal inspection, full ROM Back exam: Present: normal inspection, full ROM Neurological exam: Present: alert, oriented X3, normal gait Psychiatric exam: Present: normal mood, agitated Skin exam: Present: warm, dry, intact, normal color Course Vital Signs 08/25/20 08/25/20 08/25/20 11:06 12:12 13:00 Temperature 98.1 F Pulse Rate 75 Respiratory 18 18 18 Rate Blood Pressure 148/101 O2 Sat by Pulse 96 Oximetry Medical Decision Making - Medical Decision Making 70-year-old male presents to emergency department for psychiatric evaluation. Physical examination is unremarkable. Patient does appear to be very agitated. She did agree to 1 mg of Ativan. On reevaluation patient does report improved. CBC, CMP, UA unremarkable. Coronavirus negative. Urine jerks and positive marijuana. 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 Case discussed with Dr. Tracy. - Lab Data Result diagrams: 08/25/20 13:15 08/25/20 13:15 Lab Results 08/25/20 08/25/20 08/25/20 Range/Units 11:15 13:02 13:14 WBC (3.8-10.6) k/uL RBC (3.80-5.40) m/uL Hgb (11.4-16.0) gm/dL Hct (34.0-46.0) % MCV (80.0-100.0) fL MCH (25.0-35.0) pg MCHC (31.0-37.0) g/dL RDW (11.5-15.5) % Plt Count (150-450) k/uL MPV Neutrophils % % Lymphocytes % % Monocytes % % Eosinophils % % Basophils % % Neutrophils # (1.3-7.7) k/uL Lymphocytes # (1.0-4.8) k/uL Monocytes # (0-1.0) k/uL Eosinophils # (0-0.7) k/uL Basophils # (0-0.2) k/uL Sodium (137-145) mmol/L Potassium (3.5-5.1) mmol/L Chloride (98-107) mmol/L Carbon Dioxide (22-30) mmol/L Anion Gap mmol/L BUN (7-17) mg/dL Creatinine (0.52-1.04) mg/dL Est GFR (CKD-EPI)AfAm (>60 ml/min/1.73 sqM) Est GFR (CKD-EPI)NonAf (>60 ml/min/1.73 sqM) Glucose (74-99) mg/dL Calcium (8.4-10.2) mg/dL Total Bilirubin (0.2-1.3) mg/dL AST (14-36) U/L ALT (4-34) U/L Alkaline Phosphatase (38-126) U/L Total Protein (6.3-8.2) g/dL Albumin (3.5-5.0) g/dL Urine Color Yellow Urine Appearance Clear (Clear) Urine pH 7.0 (5.0-8.0) Ur Specific Leslie 1.009 (1.001-1.035) Urine Protein Negative (Negative) Urine Glucose (UA) Negative (Negative) Urine Ketones Negative (Negative) Urine Blood Negative (Negative) Urine Nitrite Negative (Negative) Urine Bilirubin Negative (Negative) Urine Urobilinogen <2.0 (<2.0) mg/dL Ur Leukocyte Esterase Negative (Negative) Urine Opiates Screen Not Detected (NotDetected) Ur Oxycodone Screen Not Detected (NotDetected) Urine Methadone Screen Not Detected (NotDetected) Ur Propoxyphene Screen Not Detected (NotDetected) Ur Barbiturates Screen Not Detected (NotDetected) U Tricyclic Antidepress Not Detected (NotDetected) Ur Phencyclidine Scrn Not Detected (NotDetected) Ur Amphetamines Screen Not Detected (NotDetected) U Methamphetamines Scrn Not Detected (NotDetected) U Benzodiazepines Scrn Not Detected (NotDetected) Urine Cocaine Screen Not Detected (NotDetected) U Marijuana (THC) Screen Detected H (NotDetected) Coronavirus (PCR) Not Detected (Not Detectd) 08/25/20 08/25/20 Range/Units 13:15 13:15 WBC 9.0 (3.8-10.6) k/uL RBC 4.86 (3.80-5.40) m/uL Hgb 15.0 (11.4-16.0) gm/dL Hct 44.9 (34.0-46.0) % MCV 92.2 (80.0-100.0) fL MCH 30.7 (25.0-35.0) pg MCHC 33.3 (31.0-37.0) g/dL RDW 12.6 (11.5-15.5) % Plt Count 272 (150-450) k/uL MPV 6.9 Neutrophils % 59 % Lymphocytes % 31 % Monocytes % 4 % Eosinophils % 3 % Basophils % 1 % Neutrophils # 5.3 (1.3-7.7) k/uL Lymphocytes # 2.8 (1.0-4.8) k/uL Monocytes # 0.4 (0-1.0) k/uL Eosinophils # 0.3 (0-0.7) k/uL Basophils # 0.1 (0-0.2) k/uL Sodium 138 (137-145) mmol/L Potassium 4.4 (3.5-5.1) mmol/L Chloride 107 (98-107) mmol/L Carbon Dioxide 22 (22-30) mmol/L Anion Gap 9 mmol/L BUN 9 (7-17) mg/dL Creatinine 0.74 (0.52-1.04) mg/dL Est GFR (CKD-EPI)AfAm >90 (>60 ml/min/1.73 sqM) Est GFR (CKD-EPI)NonAf 84 (>60 ml/min/1.73 sqM) Glucose 95 (74-99) mg/dL Calcium 9.9 (8.4-10.2) mg/dL Total Bilirubin 0.7 (0.2-1.3) mg/dL AST 22 (14-36) U/L ALT 15 (4-34) U/L Alkaline Phosphatase 111 (38-126) U/L Total Protein 6.7 (6.3-8.2) g/dL Albumin 4.2 (3.5-5.0) g/dL Urine Color Urine Appearance (Clear) Urine pH (5.0-8.0) Ur Specific Leslie (1.001-1.035) Urine Protein (Negative) Urine Glucose (UA) (Negative) Urine Ketones (Negative) Urine Blood (Negative) Urine Nitrite (Negative) Urine Bilirubin (Negative) Urine Urobilinogen (<2.0) mg/dL Ur Leukocyte Esterase (Negative) Urine Opiates Screen (NotDetected) Ur Oxycodone Screen (NotDetected) Urine Methadone Screen (NotDetected) Ur Propoxyphene Screen (NotDetected) Ur Barbiturates Screen (NotDetected) U Tricyclic Antidepress (NotDetected) Ur Phencyclidine Scrn (NotDetected) Ur Amphetamines Screen (NotDetected) U Methamphetamines Scrn (NotDetected) U Benzodiazepines Scrn (NotDetected) Urine Cocaine Screen (NotDetected) U Marijuana (THC) Screen (NotDetected) Coronavirus (PCR) (Not Detectd) Disposition Clinical Impression: Adjustment reaction of adult life Disposition: ADMITTED IP TO THIS [facility] Condition: Stable Is patient prescribed a controlled substance at d/c from ED?: No Referrals: Mahin Gonzalez MD [Primary Care Provider] - 1-2 days Time of Disposition: 14:22
[2020-08-25] MEDS ORDERED: LORazepam 1 MG TAB PO STA (11:51)
[2020-08-25 12:03] LABS: Amphetamine Screen,Urine Not Detected (NotDetected); Barbiturate Screen,Urine Not Detected (NotDetected); Benzodiazepines Screen,Urine Not Detected (NotDetected); Cocaine Screen,Urine Not Detected (NotDetected); Methadone Screen, Urine Not Detected (NotDetected); Opiate Screen,Urine Not Detected (NotDetected); Oxycodone Screen, Urine Not Detected (NotDetected); Phencyclidine Screen,Urine Not Detected (NotDetected); Tricyclic Antidepressant,Urine Not Detected (NotDetected); Urn Cannabinoid Scrn Detected (NotDetected)
[2020-08-25 13:09] LABS: Appearance,Urine Clear (Clear); Bilirubin,Urine Negative (Negative); Blood,Urine Negative (Negative); Color,Urine Yellow; Glucose,Urine (UA) Negative (Negative); Ketones,Urine Negative (Negative); Leukocyte Esterase,Urine Negative (Negative); Nitrite,Urine Negative (Negative); Protein,Urine Negative (Negative); Specific Gravity,Urine 1.009 (1.001-1.035); Urobilinogen,Urine <2.0 mg/dL (<2.0)
[2020-08-25 13:24] LABS: Basophils # (A) 0.1 k/uL (0-0.2); Basophils % (A) 1 %; Eosinophils # (A) 0.3 k/uL (0-0.7); Eosinophils % (A) 3 %; HCT 44.9 % (34.0-46.0); Lymphocytes # (A) 2.8 k/uL (1.0-4.8); Lymphocytes % (A) 31 %; MCH 30.7 pg (25.0-35.0); MCHC 33.3 g/dL (31.0-37.0); MCV 92.2 fL (80.0-100.0); Mean Platelet Volume 6.9; Monocytes # (A) 0.4 k/uL (0-1.0); Monocytes % (A) 4 %; Neutrophils # (A) 5.3 k/uL (1.3-7.7); Neutrophils % (A) 59 %; Platelet Count 272 k/uL (150-450); RBC 4.86 m/uL (3.80-5.40); RDW 12.6 % (11.5-15.5)
[2020-08-25 13:38] LABS: ALT 15 U/L (4-34); AST 22 U/L (14-36); African American GFR (CKD) >90 (>60 ml/min/1.73 sqM); Albumin 4.2 g/dL (3.5-5.0); Alkaline Phosphatase 111 U/L (38-126); Anion Gap 9 mmol/L; Blood Urea Nitrogen 9 mg/dL (7-17); Calcium 9.9 mg/dL (8.4-10.2); Carbon Dioxide 22 mmol/L (22-30); Chloride 107 mmol/L (98-107); Glucose 95 mg/dL (74-99); Non-African American GFR(CKD) 84 (>60 ml/min/1.73 sqM); Potassium 4.4 mmol/L (3.5-5.1); Sodium 138 mmol/L (137-145); Total Bilirubin 0.7 mg/dL (0.2-1.3); Total Protein 6.7 g/dL (6.3-8.2)
[2020-08-25] MEDS ORDERED: hydrOXYzine pamoate 25 MG CAP PO PRN (15:03)
[2020-08-25] MEDS ORDERED: MAGNESIUM HYDROXIDE 2,400 MG/10 ML CUP PO PRN (15:04)
[2020-08-25] MEDS ORDERED: ACETAMINOPHEN TAB 325 MG TAB PO PRN (15:04)
[2020-08-25] MEDS ORDERED: MAG HYDROX/AL HYDROX/SIMETH 30 ML CUP PO PRN (15:04)
[2020-08-25] MEDS ORDERED: HALOPERIDOL LACTATE 5 MG/ML 1 ML VIAL IM PRN (15:07)
[2020-08-25] MEDS ORDERED: haloperidoL 1 MG TAB PO PRN (15:07)
[2020-08-25] MEDS ORDERED: NICOTINE 14MG/24HR PATCH TRANSDERM SCH (15:15)
[2020-08-25] MEDS ORDERED: NICOTINE POLACRILEX 2 MG GUM BUCCAL PRN (17:42)
[2020-08-25] MEDS: GABAPENTIN 300 MG CAP PO SCH (20:45)
[2020-08-25] MEDS: traZODone HCL 50 MG TAB PO SCH (20:45)
[2020-08-25] MEDS: amLODIPine 5 MG TAB PO SCH (20:45)
[2020-08-26] MEDS: ASPIRIN 325 MG TAB PO SCH (08:22)
[2020-08-26] MEDS: CLOPIDOGREL 75 MG TAB PO SCH (08:23)
[2020-08-26] MEDS: atenoloL 25 MG TAB PO SCH (08:23)
[2020-08-26] MEDS: GABAPENTIN 300 MG CAP PO SCH ×2 (08:23→20:22)
[2020-08-26] MEDS: LOSARTAN 50 MG TAB PO SCH (08:23)
[2020-08-26] MEDS: SYMBICORT 160-4.5 MCG INHALER INHALATION SCH (09:06)
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
[2020-08-26] MEDS: traZODone HCL 50 MG TAB PO SCH (20:21)
[2020-08-26] MEDS: amLODIPine 5 MG TAB PO SCH (20:21)
[2020-08-26] MEDS: OXcarbazepine 150 MG TAB PO SCH (20:21)
[2020-08-26] MEDS ORDERED: LURASIDONE 20 MG TAB PO SCH (21:00)
--- NOTE | 2020-08-26 21:00 | P.CONS ---
History of Present Illness - History of Present Illness This is a pleasant 70 years old female with past medical history of closure of patent foramen ovale about 2 weeks ago on 08/13/2019. Other medical problems including hypertension, hyperlipidemia, stroke, history of smoking. She was admitted to the emergency room escorted by police yesterday because she started to herself and she was admitted to the mental health unit for signs and symptoms of depression medical consult was requested for routine medical management. Patient denies any symptoms, no chest pain or dyspnea or coughing. No abdominal pain. No urinary complaints. No change in urine or bowel habits. No fever. Vital signs stable labs including CBC, BMP, liver enzymes, urine analysis are unremarkable. Urine drug screen is positive for marijuana. Coronal varus not detected She smokes about 1 pack per day and she was counseled to quit she does not want to quit currently, also she declined nicotine patch while she is in the hospital stating that she is ALLERGIC to the patch. She denies alcohol but she smokes marijuana for her back pain and polyarthralgia Review of Systems CONSTITUTIONAL: No fever, no malaise, no fatigue. HEENT: No recent visual problems or hearing problems. Denied any sore throat. CARDIOVASCULAR: No orthopnea, PND, no palpitations, no syncope. PULMONARY: No shortness of breath, no cough, no hemoptysis. GASTROINTESTINAL: No diarrhea, no nausea, no vomiting, no abdominal pain. N ormoactive bowel sounds. NEUROLOGICAL: No headaches, no weakness, no numbness. HEMATOLOGICAL: Denies any bleeding or petechiae. GENITOURINARY: Denies any burning micturition, frequency, or urgency. MUSCULOSKELETAL/RHEUMATOLOGICAL: Denies any joint pain, swelling, or any muscle pain. ENDOCRINE: Denies any polyuria or polydipsia. Past Medical History Past Medical History: CVA/TIA, Hypertension Additional Past Medical History / Comment(s): TIA in 2012. Chronic back problems with herniated disk. History of osteopenia. 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 History of hysterectomy for CIS of the cervix in 1976. History of Any Multi-Drug Resistant Organisms: None Reported Past Surgical History: Hysterectomy, Orthopedic Surgery Additional Past Surgical History / Comment(s): rt knee surgery, rotator cuff left shoulder, ganglion cyst removed left hand,PFO 08/13/2019 Past Anesthesia/Blood Transfusion Reactions: No Reported Reaction, Unable to Obtain Additional Past Anesthesia/Blood Transfusion Reaction / Comm: adopted Smoking Status: Current every day smoker - Past Family History Mother Family Medical History: Unable to Obtain Additional Family Medical History / Comment(s): She is adopted and does not know her family history. Medications and Allergies Home Medications Medication Instructions Recorded Confirmed Type atenoloL [Atenolol] 25 mg PO DAILY 12/25/15 08/25/20 History Gabapentin [Neurontin] 300 mg PO BID 10/30/18 08/25/20 History hydrOXYzine pamoate [Vistaril] 25 mg PO TID 10/30/18 08/25/20 History Losartan Potassium [Cozaar] 100 mg PO DAILY 04/28/19 08/25/20 History Vortioxetine Hydrobromide 10 mg PO DAILY 04/28/19 08/25/20 History [Trintellix] Budesonide-Formot 160-4.5 Mcg 1 puff INHALATION RT-DAILY 08/12/19 08/25/20 History [Symbicort 160-4.5 Mcg Inhaler] amLODIPine [Norvasc] 5 mg PO HS 08/12/19 08/25/20 History traZODone HCL 75 mg PO HS 08/12/19 08/25/20 History Aspirin 325 mg PO DAILY #90 tab 08/13/19 08/25/20 Rx Clopidogrel [Plavix] 75 mg PO DAILY #30 tab 08/13/19 08/25/20 Rx Allergies Allergy/AdvReac Type Severity Reaction Status Date / Time adhesive tape Allergy Unknown Verified 08/25/20 15:23 bacitracin AdvReac Rash/Hives Verified 08/25/20 15:23 [From Neosporin ([id number])] bacitracin zinc AdvReac Rash/Hives Verified 08/25/20 15:23 [From Neosporin ([id number])] neomycin sulfate AdvReac Rash/Hives Verified 08/25/20 15:23 [From Neosporin ([id number])] polymyxin B AdvReac Rash/Hives Verified 08/25/20 15:23 [From Neosporin ([id number])] Physical Exam Vitals: Vital Signs Temp Pulse Pulse Resp BP BP Pulse Ox 08/26/20 06:38 98.7 F 72 14 133/80 08/25/20 20:46 81 167/94 08/25/20 15:35 98.7 F 75 16 130/87 97 08/25/20 14:44 98.1 F 75 18 148/101 96 08/25/20 14:00 18 08/25/20 13:00 18 Intake and Output 08/25/20 08/26/20 08/26/20 22:59 06:59 14:59 Other: Weight 68.4 kg GENERAL: The patient is alert and oriented x3, not in any acute distress. Well developed, well nourished. HEENT: Pupils are round and equally reacting to light. EOMI. No scleral icterus. No conjunctival pallor. Normocephalic, atraumatic. No pharyngeal erythema. No thyromegaly. CARDIOVASCULAR: S1 and S2 present. No murmurs, rubs, or gallops. PULMONARY: Chest is clear to auscultation, no wheezing or crackles. ABDOMEN: Soft, nontender, nondistended, normoactive bowel sounds. No palpable organomegaly. MUSCULOSKELETAL: No joint swelling or deformity. EXTREMITIES: No cyanosis, clubbing, or pedal edema. NEUROLOGICAL: Gross neurological examination did not reveal any focal deficits. SKIN: No rashes. No petechiae Results CBC & Chem 7: 08/25/20 13:15 08/25/20 13:15 Assessment and Plan Assessment: -Depression with suicidal ideation, management as per sec primary team -Substance abuse with marijuana, patient is counseled -Dyslipidemia -hypertension -Recent history of closure of foramen ovale 2 weeks prior to admission -Nicotine dependence with smoking, consult but she refuses to quit. She declined nicotine patch -Chronic back pain and polyarthralgia, using marijuana as pain management Patient is low risk for DVT We recommend patient follow up with PCP in one week after discharge and patient was instructed with the same Thank you for consulting us, we will see the patient on an as-needed basis. Please feel free to contact us for any further questions
[2020-08-27] MEDS: CLOPIDOGREL 75 MG TAB PO SCH (09:04)
[2020-08-27] MEDS: GABAPENTIN 300 MG CAP PO SCH ×2 (09:04→20:14)
[2020-08-27] MEDS: LURASIDONE 40 MG TAB PO SCH (09:04)
[2020-08-27] MEDS: ASPIRIN 325 MG TAB PO SCH (09:04)
[2020-08-27] MEDS: OXcarbazepine 150 MG TAB PO SCH ×2 (09:04→20:14)
[2020-08-27] MEDS: LOSARTAN 50 MG TAB PO SCH (09:04)
[2020-08-27] MEDS: atenoloL 25 MG TAB PO SCH (09:04)
[2020-08-27] MEDS: SYMBICORT 160-4.5 MCG INHALER INHALATION SCH (09:05)
--- NOTE | 2020-08-27 09:11 | P.PN ---
Progress Note - Text Progress Note Date: 08/27/20 Interval History: Patient was seen working on a crossword and was directable and agreeable to speak with promotion writer in the office. The patient expresses that she is a little upset feeling that other peers on the unit or receiving preferential treatment. She singles out the younger patient that was catered to after a song in the common area caused her to feel upset. Adelina reports that she enjoyed this on but that the song to be turned off in order to catered to this younger patient was upset and crying. Despite this, Adelina is not reporting any suicidal or homicidal ideation, intention, and/or plan. She is not reporting any auditory or visual hallucinations. She is denying any paranoia or delusions. The patient is not reporting any significant side effects or medications and has been in adherent to them. The patient does express concern for discharge stating that she needs to be discharged soon so that she may take care of her dog. The patient reports that she is feeling ready for discharge aside from anger that she feels. She states that despite this, she is able to maintain her composure. Mental Status Exam: General Appearance: Patient appears to be stated age is alert, directable, and cooperative. Average build and height. Behavior: Patient is calmly seated without any agitated behavior. Psychomotor activity is normal. Eye contact is appropriate. Speech: Patient's speech is fluent and nonpressured. Mood/Affect: Mood is improving mildly, affect is congruent and constricted. Suicidality/Homicidality: Patient denies having any suicidal or homicidal ideation intent or plan. Perceptions: Patient denies any visual hallucinations and denies any auditory hallucinations Though content/process: There is no evidence of any delusional thought content and thought process is linear and goal-directed. Memory and concentration: AOX3, grossly intact for the purposes of this session Judgment and insight: Improving mildly Assessment Bipolar disorder, type II, current episode mixed Rule out cluster B personality traits Cannabis use disorder Nicotine dependence Plan: -Patient continues to meet criteria for inpatient psychiatric admission for symptom stabilization and safety. Patient has signed adult voluntary form and medication consent and was placed in patient's chart. -Medications: Increase Latuda to 40 mg by mouth daily for mood stabilization/bipolar depression Continue Trileptal 150 mg by mouth twice a day off-label use for mood stabilization Continue Trazodone 50 mg by mouth at bedtime for insomnia Continue gabapentin 300 mg by mouth twice a day -When necessary Ativan and Haldol for agitation/aggression. -NRT - nicorette gum -SW on board for discharge planning. Encouraged the patient to participate in milieu.
[2020-08-27 17:36] VITALS: TEMP 98
[2020-08-27] MEDS: amLODIPine 5 MG TAB PO SCH (20:14)
[2020-08-27] MEDS: traZODone HCL 50 MG TAB PO SCH (20:14)
[2020-08-28 06:41] VITALS: BP 116/64; PULSE 87; RESP 16
[2020-08-28] MEDS: LURASIDONE 40 MG TAB PO SCH (08:02)
[2020-08-28] MEDS: SYMBICORT 160-4.5 MCG INHALER INHALATION SCH (08:02)
[2020-08-28] MEDS: LOSARTAN 50 MG TAB PO SCH (08:02)
[2020-08-28] MEDS: OXcarbazepine 150 MG TAB PO SCH (08:02)
[2020-08-28] MEDS: GABAPENTIN 300 MG CAP PO SCH (08:02)
[2020-08-28] MEDS: CLOPIDOGREL 75 MG TAB PO SCH (08:03)
[2020-08-28] MEDS: atenoloL 25 MG TAB PO SCH (08:03)
[2020-08-28] MEDS: ASPIRIN 325 MG TAB PO SCH (08:04)
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
== END 2020-08-28 12:30 | disposition home or self-care (01) | DRG 885 ==
LOC: EC 10:31 → 3MHU 14:23
PROVIDERS: ADMIT Psychiatry & Neurology Psychiatry; ATTEND Psychiatry & Neurology Psychiatry
DX: F31.60 Bipolar disorder, current episode mixed, unspecified (principal); R45.851 Suicidal ideations; R45.850 Homicidal ideations; F11.11 Opioid abuse, in remission; Z20.822 Contact with and (suspected) exposure to COVID-19; F43.22 Adjustment disorder with anxiety; I10 Essential (primary) hypertension; F10.10 Alcohol abuse, uncomplicated; R45.86 Emotional lability; R45.87 Impulsiveness; F17.210 Nicotine dependence, cigarettes, uncomplicated; M85.80 Other specified disorders of bone density and structure, unspecified site; G47.00 Insomnia, unspecified; E78.5 Hyperlipidemia, unspecified; F12.10 Cannabis abuse, uncomplicated; G89.29 Other chronic pain; Z79.899 Other long term (current) drug therapy; Z79.51 Long term (current) use of inhaled steroids; Z79.82 Long term (current) use of aspirin; Z79.02 Long term (current) use of antithrombotics/antiplatelets; Z91.048 Other nonmedicinal substance allergy status; Z86.73 Personal history of transient ischemic attack (TIA), and cerebral infarction without residual deficits; Z90.710 Acquired absence of both cervix and uterus; Z98.890 Other specified postprocedural states; Z91.5 Personal history of self-harm; Z91.410 Personal history of adult physical and sexual abuse; Z87.74 Personal history of (corrected) congenital malformations of heart and circulatory system; Z88.3 Allergy status to other anti-infective agents
CPT/HCPCS: 36415; 80053; 80306; 81003; 82075; 85025; 87635; 94640; 99285

== ENCOUNTER 2023-08-31 14:21 | Emergency (ER) | payer MEDICARE, OTHER ==
--- NOTE | 2023-08-31 14:43 | ED ---
Psych HPI - General Source: patient, police, RN notes reviewed Mode of arrival: ambulatory <Jono Camara - Last Filed: 08/31/23 14:42> - History of Present Illness MD Complaint: suicidal ideation, feels depressed -: days(s) Associated Psychiatric Symptoms: depression, suicidal ideation History of same: Yes Quality: constant Improves With: none Worsens With: none Context: not taking psychiatric medications, significant life stressor Associated Symptoms: denies other symptoms Treatments Prior to Arrival: placed on mental health hold If Self Harm: admits thoughts of self harm <Franko Rome - Last Filed: 08/31/23 20:21> - General Chief Complaint: Psychiatric Symptoms Stated Complaint: Mental Health Time Seen by Provider: 08/31/23 14:42 - History of Present Illness Initial Comments: Patient is a 73-year-old female presented to ER via police escort with chief complaint of suicidal ideation. Patient denies any plans. Patient has been taking her medications. States she did smoke marijuana earlier today. Denies any other complaints. (Jono Camara) This is a 73-year-old female to the ER for psychiatric evaluation and suicidal thoughts (Franko Rome) - Related Data Home Medications Medication Instructions Recorded Confirmed Acetaminophen [Tylenol Extra 1,000 mg PO Q6H PRN 08/31/23 08/31/23 Strength] Atorvastatin [Lipitor] 20 mg PO HS 08/31/23 08/31/23 Clopidogrel [Plavix] 75 mg PO DAILY 08/31/23 08/31/23 Escitalopram [Lexapro] 10 mg PO DAILY 08/31/23 08/31/23 hydrOXYzine pamoate [Vistaril] 25 mg PO TID 08/31/23 08/31/23 Previous Rx's Medication Instructions Recorded OXcarbazepine [Trileptal] 150 mg PO BID 30 Days tab 08/28/20 amLODIPine [Norvasc] 5 mg PO HS 30 Days tab 08/28/20 traZODone HCL [Desyrel] 50 mg PO HS 30 Days tab 08/28/20 Allergies Allergy/AdvReac Type Severity Reaction Status Date / Time adhesive tape Allergy Unknown Verified 08/31/23 17:14 bacitracin AdvReac Rash/Hives Verified 08/31/23 17:14 [From Neosporin ([id number])] bacitracin zinc AdvReac Rash/Hives Verified 08/31/23 17:14 [From Neosporin ([id number])] neomycin sulfate AdvReac Rash/Hives Verified 08/31/23 17:14 [From Neosporin ([id number])] polymyxin B AdvReac Rash/Hives Verified 08/31/23 17:14 [From Neosporin ([id number])] Review of Systems ROS Other: All systems not noted in ROS Statement are negative. <Jono Camara - Last Filed: 08/31/23 14:42> ROS Other: All systems not noted in ROS Statement are negative. <Franko Rome - Last Filed: 08/31/23 20:21> ROS Statement: Those systems with pertinent positive or pertinent negative responses have been documented in the HPI. Past Medical History Past Medical History: CVA/TIA, Hypertension Additional Past Medical History / Comment(s): TIA in 2012. Chronic back problems with herniated disk. History of osteopenia. 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 History of hysterectomy for CIS of the cervix in 1976. History of Any Multi-Drug Resistant Organisms: None Reported Past Surgical History: Hysterectomy, Orthopedic Surgery Additional Past Surgical History / Comment(s): rt knee surgery, rotator cuff left shoulder, ganglion cyst removed left hand,PFO 08/13/2019 Past Anesthesia/Blood Transfusion Reactions: No Reported Reaction, Unable to Obtain Additional Past Anesthesia/Blood Transfusion Reaction / Comment(s): adopted Past Psychological History: Bipolar Smoking Status: Current every day smoker - Past Family History Mother Family Medical History: Unable to Obtain Additional Family Medical History / Comment(s): She is adopted and does not know her family history. <Jono Camara - Last Filed: 08/31/23 14:42> General Exam Limitations: no limitations <Jono Camara - Last Filed: 08/31/23 14:42> General appearance: alert, in no apparent distress Head exam: Present: atraumatic, normocephalic, normal inspection Eye exam: Present: normal appearance, PERRL, EOMI. Absent: scleral icterus, conjunctival injection, periorbital swelling ENT exam: Present: normal exam, mucous membranes moist Neck exam: Present: normal inspection. Absent: tenderness, meningismus, lymphadenopathy Respiratory exam: Present: normal lung sounds bilaterally. Absent: respiratory distress, wheezes, rales, rhonchi, stridor Cardiovascular Exam: Present: regular rate, normal rhythm, normal heart sounds. Absent: systolic murmur, diastolic murmur, rubs, gallop, clicks GI/Abdominal exam: Present: soft, normal bowel sounds. Absent: distended, tenderness, guarding, rebound, rigid Extremities exam: Present: normal inspection, full ROM, normal capillary refill. Absent: tenderness, pedal edema, joint swelling, calf tenderness Back exam: Present: normal inspection Neurological exam: Present: alert, oriented X3, CN II-XII intact Psychiatric exam: Present: normal affect, normal mood Skin exam: Present: warm, dry, intact, normal color. Absent: rash <Franko Rome - Last Filed: 08/31/23 20:21> - General Exam Comments Initial Comments: Visual Physical Exam Vital signs reviewed General: Well-appearing, nontoxic, no acute distress. Head: Normocephalic, atraumatic Eyes: PERRLA, EOMI ENT: Airway patent Chest: Nonlabored breathing Skin: No visual rash, normal skin tone Neuro: Alert and oriented 3 Musculoskeletal: No gross abnormalities (Jono Camara) Course <Franko Rome - Last Filed: 08/31/23 20:21> Vital Signs 08/31/23 14:39 Temperature 98.2 F Pulse Rate 102 H Respiratory 20 Rate Blood Pressure 130/85 O2 Sat by Pulse 97 Oximetry - Reevaluation(s) Reevaluation #1: 08/31/23 20:20 Medical records reviewed (Franko Rome) Reevaluation #2: 08/31/23 20:20 Medically cleared for psychiatric evaluation (Franko Rome) Medical Decision Making <Jono Camara - Last Filed: 08/31/23 14:42> <Franko Rome - Last Filed: 08/31/23 20:21> - Medical Decision Making I performed the quick note portion of this chart. Electronically signed by Jono Camara PA-C (Jono Camara) 73 female seen evaluated psychiatry and will be admitted for psychiatric evaluation and treatment (Franko Rome) Disposition <Jono Camara - Last Filed: 08/31/23 14:42> Is patient prescribed a controlled substance at d/c from ED?: No <Franko Rome - Last Filed: 08/31/23 20:21> Clinical Impression: Adjustment reaction of adult life, Suicidal ideation, Depression, Acute anxiety Disposition: TRANSFER TO PSYCH HOSP/UNIT Condition: Fair Referrals: Lenny Shelton [Primary Care Provider] - 1-2 days
[2023-08-31 14:57] VITALS: TEMP 98.2
[2023-08-31 20:34] LABS: Appearance,Urine Clear (Clear); Bilirubin,Urine Negative (Negative); Blood,Urine Negative (Negative); Color,Urine Yellow; Glucose,Urine (UA) Negative (Negative); Ketones,Urine Negative (Negative); Leukocyte Esterase,Urine Negative (Negative); Nitrite,Urine Negative (Negative); PH, Urine 6.5 (5.0-8.0); Protein,Urine Trace (Negative); Specific Gravity,Urine 1.019 (1.001-1.035)
[2023-08-31 20:41] LABS: Cocaine Screen,Urine Not Detected (NotDetected); Phencyclidine Screen,Urine Not Detected (NotDetected); Urn Cannabinoid Scrn Detected (NotDetected)
[2023-08-31 20:42] LABS: Amphetamine Screen,Urine Not Detected (NotDetected); Barbiturate Screen,Urine Not Detected (NotDetected); Benzodiazepines Screen,Urine Not Detected (NotDetected); Methadone Screen, Urine Not Detected (NotDetected); Opiate Screen,Urine Not Detected (NotDetected); Oxycodone Screen, Urine Not Detected (NotDetected); Tricyclic Antidepressant,Urine Not Detected (NotDetected)
[2023-08-31 20:48] LABS: Basophils # (A) 0.1 k/uL (0-0.2); Basophils % (A) 1 %; Eosinophils # (A) 0.2 k/uL (0-0.7); Eosinophils % (A) 2 %; HCT 39.1 % (34.0-46.0); HGB 13.2 gm/dL (11.4-16.0); Lymphocytes # (A) 2.7 k/uL (1.0-4.8); Lymphocytes % (A) 34 %; MCH 31.2 pg (25.0-35.0); MCHC 33.8 g/dL (31.0-37.0); MCV 92.4 fL (80.0-100.0); Mean Platelet Volume 6.9; Monocytes # (A) 0.4 k/uL (0-1.0); Monocytes % (A) 5 %; Neutrophils # (A) 4.3 k/uL (1.3-7.7); Neutrophils % (A) 55 %; Platelet Count 350 k/uL (150-450); RBC 4.23 m/uL (3.80-5.40); RDW 14.1 % (11.5-15.5); WBC 7.8 k/uL (3.8-10.6)
[2023-08-31 20:59] LABS: ALT 10 U/L (4-34); AST 20 U/L (14-36); African American GFR (CKD) >90 (>60 ml/min/1.73 sqM); Albumin 3.7 g/dL (3.5-5.0); Alkaline Phosphatase 136 U/L (38-126); Anion Gap 6 mmol/L; Blood Urea Nitrogen 12 mg/dL (7-17); Calcium 9.7 mg/dL (8.4-10.2); Carbon Dioxide 26 mmol/L (22-30); Chloride 106 mmol/L (98-107); Glucose 93 mg/dL (74-99); Non-African American GFR(CKD) >90 (>60 ml/min/1.73 sqM); Potassium 3.7 mmol/L (3.5-5.1); Sodium 138 mmol/L (137-145); Total Bilirubin 0.4 mg/dL (0.2-1.3); Total Protein 5.9 g/dL (6.3-8.2)
[2023-08-31] MEDS ORDERED: ACETAMINOPHEN TAB 500 MG TAB PO PRN (21:01)
[2023-08-31] MEDS: amLODIPine 5 MG TAB PO SCH (21:30)
[2023-08-31] MEDS: traZODone HCL 50 MG TAB PO ONE (21:30)
[2023-08-31] MEDS: hydrOXYzine pamoate 25 MG CAP PO SCH (21:30)
[2023-09-01 08:14] VITALS: BP 134/83; PULSE 89; RESP 18
[2023-09-01] MEDS: CLOPIDOGREL 75 MG TAB PO SCH (09:02)
[2023-09-01] MEDS: ESCITALOPRAM 10 MG TAB PO SCH (09:02)
[2023-09-01] MEDS: OXcarbazepine 150 MG TAB PO SCH (09:03)
[2023-09-01] MEDS ORDERED: ATORVASTATIN 20 MG TAB PO SCH (21:00)
[2023-09-01] MEDS ORDERED: amLODIPine 5 MG TAB PO SCH (21:00)
== END 2023-09-01 09:11 ==
LOC: EC 14:21
DX: R45.851 Suicidal ideations (principal); F43.22 Adjustment disorder with anxiety; F32.A Depression, unspecified; I10 Essential (primary) hypertension; F17.200 Nicotine dependence, unspecified, uncomplicated; Z79.02 Long term (current) use of antithrombotics/antiplatelets; Z79.899 Other long term (current) drug therapy; Z91.041 Radiographic dye allergy status; Z88.8 Allergy status to other drugs, medicaments and biological substances; Z86.73 Personal history of transient ischemic attack (TIA), and cerebral infarction without residual deficits; Z20.822 Contact with and (suspected) exposure to COVID-19
CPT/HCPCS: 36415; 80053; 80306; 81003; 82075; 85025; 87636; 99285